=== PATIENT | female | born 1985 | race Caucasian/White ===

== ENCOUNTER 2019-04-04 08:10 | Emergency (ER) | payer OTHER ==
[~2019-04-04] VITALS: Ht 167.6 cm; Wt 68.0 kg
[2019-04-04] MEDS ORDERED: NAPR500T14 PO (08:45)
[2019-04-04] MEDS ORDERED: CELEBREX50 MG PO (08:45)
[2019-04-04] MEDS ORDERED: FEXMID7.5 MG (08:46)
[2019-04-04] MEDS ORDERED: TYLENOL-CODEINE1 TA1 PO (08:46)
== END 2019-04-04 11:26 | disposition home or self-care (01) ==
LOC: ER 08:10
DX: M54.5 Low back pain (principal)